=== PATIENT | male | born 1995 | race Caucasian/White ===

== ENCOUNTER 2024-01-07 23:28 | Emergency (ER) | payer OTHER ==
[~2024-01-07] VITALS: Ht 185.4 cm; Wt 101.6 kg
[~2024-01-07 23:28] MED LIST: AMOX500 PO; CEPH500 PO
[2024-01-07 23:30] VITALS: BP 144/95
== END 2024-01-07 23:37 | disposition home or self-care (01) ==
LOC: ER 23:28
DX: H92.02 Otalgia, left ear (principal)
CPT/HCPCS: 99282